=== PATIENT | female | born 1940 | race Caucasian/White ===

== ENCOUNTER 2018-02-21 00:46 | Emergency (ER) | payer MEDICARE ==
[~2018-02-21] VITALS: Ht 584.7 cm; Wt 56.4 kg
[2018-02-21 00:50] VITALS: BP 127/78
[2018-02-21] MEDS ORDERED: LIDOcaine 1.5% w/epinephrine 1:200,000 5ml ampul IJ ONE (01:15)
[2018-02-21] MEDS ORDERED: CEPH500C5 PO (01:48)
== END 2018-02-21 02:04 | disposition home or self-care (01) ==
LOC: ER 00:47
DX: S41.112A Laceration without foreign body of left upper arm, initial encounter (principal); S90.111A Contusion of right great toe without damage to nail, initial encounter; Z88.0 Allergy status to penicillin; Z79.2 Long term (current) use of antibiotics; W18.43XA Slipping, tripping and stumbling without falling due to stepping from one level to another, initial encounter; Y93.01 Activity, walking, marching and hiking; Y92.89 Other specified places as the place of occurrence of the external cause; Y99.8 Other external cause status
CPT/HCPCS: 12002; 99284; A4565; A6222; J3490; 99283

== ENCOUNTER 2019-05-15 13:41 | Inpatient (IN) | payer MEDICARE ==
[~2019-05-15] VITALS: Ht 170.2 cm; Wt 64.0 kg
[2019-05-15] MEDS ORDERED: normal saline 1000ML IV soln IVB ONE (14:10)
[2019-05-15] MEDS ORDERED: thiamine 100mg/ml 2ml inj. IV ONE ×2 (14:10→15:25)
[2019-05-15] MEDS ORDERED: levoFLOXACIN-Levaquin 750MG/D5 150 ML IV ONE (14:30)
[2019-05-15 14:41] LABS: BASOPHILS # (AUTO) 0.1 X10'3 (0-0.2); BASOPHILS % (AUTO) 0.6 % (0-1); EOSINOPHILS % (AUTO) 0.1 % (0-6); HEMATOCRIT 31.7 % (35.0-45.0); HEMOGLOBIN 11.3 g/dl (12.0-16.0); LYMPHOCYTES # (AUTO) 0.9 X10'3 (1.1-4.8); LYMPHOCYTES % (AUTO) 8.8 % (21-51); MEAN CORPUSCULAR HEMOGLOBIN 37.8 PG (27.0-31.0); MEAN CORPUSCULAR HGB CONC 35.6 g/dL (33.0-36.5); MEAN CORPUSCULAR VOLUME 106.2 FL (78-98); MEAN PLATELET VOLUME 8.1 FL (7.4-10.4); MONOCYTES # (AUTO) 1.3 X10'3 (0-0.9); MONOCYTES % (AUTO) 12.1 % (2-12); NEUTROPHILS # (AUTO) 8.2 X10'3 (1.8-7.7); NEUTROPHILS % (AUTO) 78.4 % (42-75); PLATELET COUNT 232 X10'3 (140-440); RED BLOOD COUNT 2.98 X10'6 (4.20-5.60); RED CELL DISTRIBUTION WIDTH 13.9 % (11.5-14.5); WHITE BLOOD COUNT 10.4 X10'3 (4.5-11.0)
[2019-05-15 15:00] LABS: ALANINE AMINOTRANSFERASE 20 U/L (12-78); ALBUMIN/GLOBULIN RATIO 0.9 (1.1-1.5); ALKALINE PHOSPHATASE 74 IU/L (46-116); ANION GAP 11 (8-16); ASPARTATE AMINO TRANSFERASE 29 U/L (10-37); BILIRUBIN,TOTAL 1.5 MG/DL (0.1-1.0); BLOOD UREA NITROGEN 16 MG/DL (7-18); CALCIUM 8.5 MG/DL (8.5-10.1); CHLORIDE 89 MMOL/L (99-107); GLUCOSE 131 MG/DL (70-104); LIPASE 200 U/L (73-393); POTASSIUM 3.8 MMOL/L (3.5-5.1); SODIUM 124 MMOL/L (135-145); TOTAL PROTEIN 6.4 G/DL (6.4-8.2); eGFR 70 ML/MIN
[2019-05-15] MEDS: normal saline 1000ml 1,000 ML IV SCH (15:23)
[2019-05-15] MEDS ORDERED: dextrose 50%-water 50ml dispensing syringe IV PRN (15:25)
[2019-05-15] MEDS ORDERED: LORazepam 2 mg/ml vial IV PRN (15:25)
[2019-05-15] MEDS ORDERED: metoprolol tartrate 1mg/ml inj IV ONE (15:25)
[2019-05-15] MEDS ORDERED: acetaminophen 325mg tablet PO PRN (15:25)
[2019-05-15] MEDS ORDERED: mag hydrox/Alum hydrox/simeth 30ml oral suspension PO PRN (15:25)
[2019-05-15] MEDS ORDERED: magnesium hydroxide 30ml (MOM) UD suspension PO PRN (15:25)
[2019-05-15] MEDS ORDERED: ondansetron/PF 4mg/2ml inj IV PRN (15:25)
[2019-05-15] MEDS ORDERED: thiamine 100mg tablet PO ONE (15:30)
--- NOTE | 2019-05-15 16:45 | NUR ---
recieved report from Ron Kirkpatrick RN. Pt arrived to floor @ 1630. A&Ox4
[2019-05-15 18:00] VITALS: BP 178/109
--- NOTE | 2019-05-15 18:27 | NUR ---
Problems reprioritized. Patient report given, questions answered & plan of care reviewed with ZARA Sosa.
--- NOTE | 2019-05-15 18:30 | NUR ---
Patient in room PCU 3012. I have received report from ZARA Meyers and had the opportunity to ask questions and assume patient care.
[2019-05-15 19:00] VITALS: BP 156/88
--- NOTE | 2019-05-15 19:55 | NUR ---
Unable to complete medicationr econciliation due to patient not having her med list with her. Will pass on to next shift to complete med rec when daughter comes to see patient.
[2019-05-15 22:00] VITALS: BP 148/104
[2019-05-16] VITALS (8 sets, daily range): BP systolic 104–171; BP diastolic 86–110
--- NOTE | 2019-05-16 01:52 | NUR ---
Patient has attempted to void twice so far and states she feels like she doesn't have to urinate. Bladder scan was performed and she has 900ml of urine in her bladder. Dr. Stewart was paged and an order for a pineda was given.
--- NOTE | 2019-05-16 02:00 | NUR ---
Rachel placed and pt had 900 ml of urine output
[2019-05-16] MEDS: hydrALAZINE 20mg/ml inj. IV PRN (02:59)
[2019-05-16] MEDS: normal saline 1000ml 1,000 ML IV SCH ×3 (02:59→21:23)
[2019-05-16 05:33] LABS: ALBUMIN 2.7 G/DL (3.4-5.0); ANION GAP 12 (8-16); BLOOD UREA NITROGEN 14 MG/DL (7-18); BUN/CREATININE RATIO 20.3 (6.6-38.0); CALCIUM 8.2 MG/DL (8.5-10.1); CHLORIDE 92 MMOL/L (99-107); CREATININE 0.69 MG/DL (0.40-0.90); GLUCOSE 121 MG/DL (70-104); POTASSIUM 3.9 MMOL/L (3.5-5.1); SODIUM 125 MMOL/L (135-145); TOTAL CARBON DIOXIDE 21.4 MMOL/L (24-32); eGFR 82 ML/MIN
[2019-05-16 05:37] LABS: BASOPHILS % (AUTO) 0.1 % (0-1); EOSINOPHILS % (AUTO) 0 % (0-6); HEMATOCRIT 30.9 % (35.0-45.0); HEMOGLOBIN 10.6 g/dl (12.0-16.0); LYMPHOCYTES # (AUTO) 0.8 X10'3 (1.1-4.8); LYMPHOCYTES % (AUTO) 7.2 % (21-51); MEAN CORPUSCULAR HEMOGLOBIN 37.6 PG (27.0-31.0); MEAN CORPUSCULAR HGB CONC 34.4 g/dL (33.0-36.5); MEAN CORPUSCULAR VOLUME 109.1 FL (78-98); MEAN PLATELET VOLUME 8.2 FL (7.4-10.4); MONOCYTES % (AUTO) 9.1 % (2-12); NEUTROPHILS % (AUTO) 83.6 % (42-75); PLATELET COUNT 234 X10'3 (140-440); RED BLOOD COUNT 2.83 X10'6 (4.20-5.60); RED CELL DISTRIBUTION WIDTH 14.1 % (11.5-14.5); WHITE BLOOD COUNT 10.8 X10'3 (4.5-11.0)
--- NOTE | 2019-05-16 06:20 | NUR ---
Problems reprioritized. Patient report given, questions answered & plan of care reviewed with ZARA Mckeon.
--- NOTE | 2019-05-16 06:26 | NUR ---
Patient in room PCU 3012B. I have received report from Sheila ZUÑIGA and had the opportunity to ask questions and assume patient care.
[2019-05-16] MEDS: thiamine 100mg tablet PO SCH (07:43)
[2019-05-16] MEDS: multivitamins, therapeutics tablet PO SCH (07:43)
[2019-05-16] MEDS: folic acid 1mg tablet PO SCH (07:43)
[2019-05-16] MEDS: levoFLOXACIN-Levaquin 500mg/D5 100 ML IV SCH (07:43)
[2019-05-16] MEDS ORDERED: folic acid inj. 2 MG, thiamine inj. 100 MG, MVI, adult No.4 with vit. K 10 ML in dextro... IV SCH ×4 (08:00)
--- NOTE | 2019-05-16 10:13 | NUR ---
Paged Dr England for pineda order PAGER ID: [phone] MESSAGE: Linda ramirez [phone]. Deanne Mna [id number]. Can I put in order for pineda? shift superintendent received order from Dr Stewart last night due to urinary retention, but did not put in order. Thank you!
[2019-05-16] MEDS ORDERED: APIX5TAB3 PO (11:39)
[2019-05-16] MEDS ORDERED: METO-395 PO (11:40)
[2019-05-16] MEDS ORDERED: TAMO20TA4 PO (11:41)
[2019-05-16] MEDS ORDERED: BUPR150T6 PO (11:42)
[2019-05-16] MEDS ORDERED: TOLT2TAB2 PO (11:44)
--- NOTE | 2019-05-16 13:59 | NUR ---
Malnutrition consult: Pt admit w/ L PNA hx alcoholism, HTN, and breast CA. AOx3 w/ moments of confusion today per EMR. Receiving PO thiamin/folic/MVI for etoh s/p banana bag. At this time pt has no significant edema, weakness, wt loss hx, and PO 50% avg first heart healthy meals decent given age. Currently does not meet minimum malnutrition criteria. Will continue to monitor. Addendum: 05/16/19 at [address] Amended: Links added.
--- NOTE | 2019-05-16 18:25 | NUR ---
Patient in room U 3012. I have received report from ZARA Mckeon and had the opportunity to ask questions and assume patient care. Pt sitting up m bed states not hungry rain gimenez ice fernando for later. orderd from dietary. Addendum: 05/16/19 at 1857 by Aftab Desai RN Amended: Links added.
--- NOTE | 2019-05-16 18:27 | NUR ---
Problems reprioritized. Patient report given, questions answered & plan of care reviewed with Sunshine ZUÑIGA. Patient laying in bed, stable and with no complaints
[2019-05-16] MEDS: lactobacillus rhamnosus 10,000 MMU CELLS/CAPSULE PO SCH (19:42)
[2019-05-17] VITALS (8 sets, daily range): BP systolic 126–176; BP diastolic 67–99
[2019-05-17] MEDS: hydrALAZINE 20mg/ml inj. IV PRN ×2 (02:28→16:45)
[2019-05-17] MEDS: normal saline 1000ml 1,000 ML IV SCH ×2 (02:28→22:04)
[2019-05-17 05:26] LABS: BASOPHILS % (AUTO) 0.2 % (0-1); EOSINOPHILS % (AUTO) 0.1 % (0-6); HEMATOCRIT 31.7 % (35.0-45.0); LYMPHOCYTES # (AUTO) 0.9 X10'3 (1.1-4.8); LYMPHOCYTES % (AUTO) 8.1 % (21-51); MEAN CORPUSCULAR HEMOGLOBIN 37.8 PG (27.0-31.0); MEAN CORPUSCULAR HGB CONC 34.7 g/dL (33.0-36.5); MEAN PLATELET VOLUME 8.1 FL (7.4-10.4); MONOCYTES # (AUTO) 1.2 X10'3 (0-0.9); MONOCYTES % (AUTO) 10.6 % (2-12); NEUTROPHILS # (AUTO) 8.9 X10'3 (1.8-7.7); PLATELET COUNT 231 X10'3 (140-440); RED CELL DISTRIBUTION WIDTH 14.5 % (11.5-14.5)
[2019-05-17 05:45] LABS: ALBUMIN 2.7 G/DL (3.4-5.0); ANION GAP 11 (8-16); BLOOD UREA NITROGEN 12 MG/DL (7-18); BUN/CREATININE RATIO 18.2 (6.6-38.0); CALCIUM 7.9 MG/DL (8.5-10.1); CHLORIDE 94 MMOL/L (99-107); CREATININE 0.66 MG/DL (0.40-0.90); GLUCOSE 102 MG/DL (70-104); POTASSIUM 3.3 MMOL/L (3.5-5.1); SODIUM 126 MMOL/L (135-145); TOTAL CARBON DIOXIDE 20.9 MMOL/L (24-32); eGFR 87 ML/MIN
--- NOTE | 2019-05-17 06:32 | NUR ---
Problems reprioritized. Patient report given, questions answered & plan of care reviewed with ZARA WRAY. Addendum: 05/17/19 at 0633 by Aftab Desai RN Amended: Links added.
[2019-05-17] MEDS: thiamine 100mg tablet PO SCH (07:51)
[2019-05-17] MEDS: lactobacillus rhamnosus 10,000 MMU CELLS/CAPSULE PO SCH ×2 (07:51→22:07)
[2019-05-17] MEDS: levoFLOXACIN-Levaquin 500mg/D5 100 ML IV SCH (07:51)
[2019-05-17] MEDS: multivitamins, therapeutics tablet PO SCH (07:51)
[2019-05-17] MEDS: folic acid 1mg tablet PO SCH (07:51)
[2019-05-17] MEDS ORDERED: potassium Cl 20 mEq SR tablet PO PRN (09:50)
[2019-05-17] MEDS ORDERED: magnesium Cl slow-release 64mg tablet PO PRN (09:50)
[2019-05-17] MEDS ORDERED: potassium CL 10mEq/100ml bag 100 ML IV PRN (09:50)
[2019-05-17] MEDS ORDERED: magnesium 4gm in 100ml NS 100 ML IV PRN (09:50)
[2019-05-17] MEDS: K and/or MAG REPLACEMENT MC SCH ×2 (09:50→20:00)
[2019-05-17] MEDS ORDERED: iohexol 300mg/ml 100ml inj. ONE (10:20)
[2019-05-17] MEDS: potassium Cl 20 mEq SR tablet PO PRN ×2 (11:27→16:45)
[2019-05-17 15:03] LABS: CLARITY,URINE TURBID (Clear); COLOR,URINE STRAW (Yellow); GLUCOSE, URINE NEGATIVE (Neg); KETONES,URINE 15 mg/dl (Neg); LEUKOCYTE ESTERASE ,URINE NEGATIVE (Neg); NITRITES, URINE NEGATIVE (Neg); OCCULT BLOOD,URINE LARGE (Neg); PH,URINE 6.5 (4.8-8.0); PROTEIN,URINE 100 mg/dl (Neg)
[2019-05-17 15:07] LABS: UA COLLECTION TYPE FOLEY CATH
[2019-05-17 15:12] LABS: BACTERIA,URINE NONE SEEN /HPF (Neg); MUCUS STRANDS NONE SEEN /LPF (Neg); RBC,URINE TNTC /HPF (0-2); SQUAMOUS EPITHELIAL CELL,UR FEW /LPF (FEW); WBC,URINE 0-4 /HPF (0-4)
[2019-05-17] MEDS ORDERED: LORazepam 2 mg/ml vial IV PRN (15:25)
[2019-05-17] MEDS ORDERED: LORazepam 1 MG tablet PO PRN (15:25)
--- NOTE | 2019-05-17 17:32 | NUR ---
patient and patients daughter were requesting tylenol for back pain and a medication to help patient sleep. PAGER ID: [phone] MESSAGE: Linda WILLIAMSON. Pt and Pt family requesting Tylenol for back pain and medication to help patient sleep if possible. Thank you! Received order for 650 mg tylenol q PRN and melatonin 6 mg for sleep
[2019-05-17] MEDS ORDERED: acetaminophen 325mg tablet PO PRN (17:35)
--- NOTE | 2019-05-17 18:30 | NUR ---
Patient in room PCU 3012. I have received report from Linda ZUÑIGA and had the opportunity to ask questions and assume patient care.
--- NOTE | 2019-05-17 18:40 | NUR ---
Problems reprioritized. Patient report given, questions answered & plan of care reviewed with Amanda ZUÑIGA. Pt is resting in bed
[2019-05-17] MEDS ORDERED: Melatonin 3mg tablet PO SCH (21:00)
[2019-05-18 02:00] VITALS: BP 131/76
[2019-05-18] MEDS: normal saline 1000ml 1,000 ML IV SCH ×2 (03:23→10:04)
[2019-05-18 04:48] LABS: BASOPHILS % (AUTO) 0.4 % (0-1); EOSINOPHILS % (AUTO) 0.5 % (0-6); HEMATOCRIT 33.5 % (35.0-45.0); HEMOGLOBIN 11.5 g/dl (12.0-16.0); LYMPHOCYTES % (AUTO) 10.5 % (21-51); MEAN CORPUSCULAR HEMOGLOBIN 37.8 PG (27.0-31.0); MEAN CORPUSCULAR HGB CONC 34.3 g/dL (33.0-36.5); MEAN PLATELET VOLUME 7.9 FL (7.4-10.4); MONOCYTES # (AUTO) 1.1 X10'3 (0-0.9); MONOCYTES % (AUTO) 11.6 % (2-12); NEUTROPHILS # (AUTO) 7.1 X10'3 (1.8-7.7); PLATELET COUNT 228 X10'3 (140-440); RED BLOOD COUNT 3.04 X10'6 (4.20-5.60); RED CELL DISTRIBUTION WIDTH 14.7 % (11.5-14.5); WHITE BLOOD COUNT 9.2 X10'3 (4.5-11.0)
[2019-05-18 04:49] LABS: ALBUMIN 2.6 G/DL (3.4-5.0); ANION GAP 9 (8-16); BLOOD UREA NITROGEN 8 MG/DL (7-18); BUN/CREATININE RATIO 12.3 (6.6-38.0); CALCIUM 8.3 MG/DL (8.5-10.1); CHLORIDE 96 MMOL/L (99-107); CREATININE 0.65 MG/DL (0.40-0.90); GLUCOSE 96 MG/DL (70-104); POTASSIUM 3.4 MMOL/L (3.5-5.1); SODIUM 128 MMOL/L (135-145); TOTAL CARBON DIOXIDE 22.9 MMOL/L (24-32); eGFR 88 ML/MIN
--- NOTE | 2019-05-18 06:15 | NUR ---
Problems reprioritized. Patient report given, questions answered & plan of care reviewed with Linda ZUÑIGA.
[2019-05-18 06:30] VITALS: BP 175/101
--- NOTE | 2019-05-18 06:54 | NUR ---
Patient in room PCU 3012B. I have received report from Antonella ZUÑIGA and had the opportunity to ask questions and assume patient care.
[2019-05-18] MEDS: potassium Cl 20 mEq SR tablet PO PRN ×2 (07:28→12:56)
[2019-05-18] MEDS: hydrALAZINE 20mg/ml inj. IV PRN (07:29)
[2019-05-18] MEDS: folic acid 1mg tablet PO SCH (07:31)
[2019-05-18] MEDS: lactobacillus rhamnosus 10,000 MMU CELLS/CAPSULE PO SCH (07:31)
[2019-05-18] MEDS: thiamine 100mg tablet PO SCH (07:31)
[2019-05-18] MEDS: multivitamins, therapeutics tablet PO SCH (07:31)
[2019-05-18] MEDS: K and/or MAG REPLACEMENT MC SCH (07:32)
[2019-05-18] MEDS ORDERED: buproprion 150mg XL (24-hour) tablet PO SCH (08:30)
[2019-05-18] MEDS ORDERED: metoprolol succinate 25mg (24-HOUR) SR. Tablet PO SCH (08:30)
[2019-05-18] MEDS ORDERED: TAMOXIFEN CITRATE PO SCH (08:40)
[2019-05-18 11:00] VITALS: BP 145/77
[2019-05-18] MEDS ORDERED: levoFLOXACIN 500mg tablet PO SCH (11:00)
[2019-05-18 15:00] VITALS: BP 138/82
--- NOTE | 2019-05-18 15:50 | NUR ---
Per MD, patient stable for transfer to [facility]. Family aware of transfer. Report called to Sharifa ZUÑIGA at 1455. All questions answered. Daughter Dayna took some of patients belongings with her to meet patient at [facility]. IV removed with catheter intact. Tele monitor removed and returned to telecommunication equipment repairer. Patient escorted from hospital in wheelchair accompanied by [facility] staff and driven to [facility] via [facility]
[2019-05-18] MEDS ORDERED: apixaban 5mg tablet PO SCH (20:00)
[2019-05-19] MEDS ORDERED: LORazepam 1 MG tablet PO PRN (15:25)
[2019-05-19] MEDS ORDERED: LORazepam 2 mg/ml vial IV PRN (15:25)
== END 2019-05-18 15:50 | DRG 193 ==
LOC: ER 13:42 → ED HOLD 15:35 → PCU 3S 16:46
PROVIDERS: ADMIT Family Medicine; ATTEND Family Medicine
PROC: BW281ZZ Computerized Tomography (CT Scan) of Head using Low Osmolar Contrast (ICD-10-PCS; principal; 2019-05-17)
DX: J18.9 Pneumonia, unspecified organism (principal); G93.41 Metabolic encephalopathy; E87.1 Hypo-osmolality and hyponatremia; E44.0 Moderate protein-calorie malnutrition; D63.8 Anemia in other chronic diseases classified elsewhere; E86.0 Dehydration; E87.6 Hypokalemia; F10.20 Alcohol dependence, uncomplicated; F32.9 Major depressive disorder, single episode, unspecified; I10 Essential (primary) hypertension; I48.91 Unspecified atrial fibrillation; N13.9 Obstructive and reflux uropathy, unspecified; Z85.3 Personal history of malignant neoplasm of breast; Z68.22 Body mass index [BMI] 22.0-22.9, adult; Z88.0 Allergy status to penicillin
CPT/HCPCS: 36415; 70470; 71045; 80048; 80053; 81001; 83605; 83690; 84145; 84484; 85025; 87040; 87081; 93005; 96361; 96374; 97116; 97161; 97530; 99285; G0378; J0360; J1956; J3411; J3490; J7030; Q9967

== ENCOUNTER 2019-08-06 20:33 | Emergency (ER) | payer MEDICARE ==
[~2019-08-06] VITALS: Ht 170.2 cm; Wt 54.5 kg
[~2019-08-06 20:33] MED LIST: APIX5TAB3 PO; BUPR150T6 PO; METO-395 PO; TAMO20TA4 PO; TOLT2TAB2 PO
[2019-08-06] MEDS ORDERED: FAMO-128 PO (21:40)
[2019-08-06] MEDS ORDERED: DONE10TA7 PO (21:40)
[2019-08-06 22:15] LABS: BASOPHILS % (AUTO) 0.4 % (0-1); EOSINOPHILS % (AUTO) 0.1 % (0-6); HEMATOCRIT 35.5 % (35.0-45.0); HEMOGLOBIN 12.2 g/dl (12.0-16.0); LYMPHOCYTES # (AUTO) 0.8 X10'3 (1.1-4.8); LYMPHOCYTES % (AUTO) 9.6 % (21-51); MEAN CORPUSCULAR HGB CONC 34.4 g/dL (33.0-36.5); MEAN CORPUSCULAR VOLUME 104.4 FL (78-98); MEAN PLATELET VOLUME 9.9 FL (7.4-10.4); MONOCYTES # (AUTO) 0.9 X10'3 (0-0.9); MONOCYTES % (AUTO) 10.8 % (2-12); NEUTROPHILS # (AUTO) 6.2 X10'3 (1.8-7.7); NEUTROPHILS % (AUTO) 79.1 % (42-75); PLATELET COUNT 204 X10'3 (140-440); RED CELL DISTRIBUTION WIDTH 13.7 % (11.5-14.5); WHITE BLOOD COUNT 7.9 X10'3 (4.5-11.0)
[2019-08-06] MEDS ORDERED: tranexamic acid 100mg/ml inj. TP ONE (22:25)
--- NOTE | 2019-08-06 23:10 | NUR ---
HONEY BRUNSON MADE AWARE OF PT BLEEDING. NO NEW ORDERS OTHER THEN TO "HAVE PATIENT WAIT 30 MINUTES."
[2019-08-07] VITALS: BP 141/87
== END 2019-08-07 00:03 | disposition home or self-care (01) ==
LOC: ER 20:34
DX: R04.0 Epistaxis (principal); I48.91 Unspecified atrial fibrillation; Z85.3 Personal history of malignant neoplasm of breast; Z88.0 Allergy status to penicillin; Z79.899 Other long term (current) drug therapy; Z79.01 Long term (current) use of anticoagulants
CPT/HCPCS: 30901; 36415; 85025; 99284

== ENCOUNTER 2019-08-10 14:08 | Emergency (ER) | payer MEDICARE ==
[~2019-08-10] VITALS: Ht 167.6 cm; Wt 53.7 kg
[~2019-08-10 14:08] MED LIST changes: +DONE10TA7 PO; +FAMO-128 PO
[2019-08-10 14:15] VITALS: BP 179/103
--- NOTE | 2019-08-10 14:42 | NUR ---
RHINO ROCKET REMOVED, PT CATA WELL
--- NOTE | 2019-08-10 15:08 | NUR ---
PT LEFT WITHOUT DC INSTRUCTIONS
== END 2019-08-10 15:08 | disposition home or self-care (01) ==
LOC: ER 14:09
DX: R04.0 Epistaxis (principal); F32.9 Major depressive disorder, single episode, unspecified; F19.10 Other psychoactive substance abuse, uncomplicated; Z85.3 Personal history of malignant neoplasm of breast; Z88.0 Allergy status to penicillin; Z79.899 Other long term (current) drug therapy
CPT/HCPCS: 99281

== ENCOUNTER 2019-08-25 22:59 | Inpatient (IN) | payer MEDICARE ==
[~2019-08-25] VITALS: Ht 167.6 cm; Wt 66.4 kg
[2019-08-25] MEDS ORDERED: ondansetron/PF 4mg/2ml inj IV ONE (23:10)
[2019-08-25] MEDS ORDERED: normal saline 1000ML IV soln IVB ONE (23:10)
[2019-08-25 23:38] LABS: BASOPHILS # (AUTO) 0.1 X10'3 (0-0.2); BASOPHILS % (AUTO) 0.4 % (0-1); EOSINOPHILS % (AUTO) 0.1 % (0-6); HEMATOCRIT 42.9 % (35.0-45.0); HEMOGLOBIN 14.7 g/dl (12.0-16.0); LYMPHOCYTES # (AUTO) 0.4 X10'3 (1.1-4.8); LYMPHOCYTES % (AUTO) 2.6 % (21-51); MEAN CORPUSCULAR HEMOGLOBIN 35.4 PG (27.0-31.0); MEAN CORPUSCULAR HGB CONC 34.1 g/dL (33.0-36.5); MEAN CORPUSCULAR VOLUME 103.8 FL (78-98); MEAN PLATELET VOLUME 9.8 FL (7.4-10.4); MONOCYTES # (AUTO) 0.8 X10'3 (0-0.9); MONOCYTES % (AUTO) 4.7 % (2-12); NEUTROPHILS # (AUTO) 15.7 X10'3 (1.8-7.7); NEUTROPHILS % (AUTO) 92.2 % (42-75); PLATELET COUNT 186 X10'3 (140-440); RED BLOOD COUNT 4.14 X10'6 (4.20-5.60); RED CELL DISTRIBUTION WIDTH 14.2 % (11.5-14.5); WHITE BLOOD COUNT 17.1 X10'3 (4.5-11.0)
[2019-08-25] MEDS ORDERED: furosemide 10 MG/1 ML 10ml inj IV ONE (23:40)
[2019-08-25 23:48] LABS: ALANINE AMINOTRANSFERASE 32 U/L (12-78); ALBUMIN 3.7 G/DL (3.4-5.0); ALKALINE PHOSPHATASE 89 IU/L (46-116); ANION GAP 10 (8-16); ASPARTATE AMINO TRANSFERASE 32 U/L (10-37); BILIRUBIN,TOTAL 1.1 MG/DL (0.1-1.0); BLOOD UREA NITROGEN 13 MG/DL (7-18); BUN/CREATININE RATIO 13.3 (6.6-38.0); CALCIUM 9.3 MG/DL (8.5-10.1); CHLORIDE 95 MMOL/L (99-107); CREATININE 0.98 MG/DL (0.40-0.90); GLUCOSE 161 MG/DL (70-104); POTASSIUM 4.1 MMOL/L (3.5-5.1); SODIUM 131 MMOL/L (135-145); TOTAL PROTEIN 7.5 G/DL (6.4-8.2); eGFR 55 ML/MIN
[2019-08-25 23:56] LABS: TROPONIN I < 0.04 NG/ML (0.0-0.05)
[2019-08-25 23:57] LABS: ETHANOL < 0.010 GM/DL (0.0-0.010)
[2019-08-26] MEDS ORDERED: DONE10TA7 PO (00:09)
[2019-08-26] MEDS ORDERED: METO-539 PO (00:09)
[2019-08-26] MEDS ORDERED: LORA10CA PO (00:09)
[2019-08-26] MEDS ORDERED: CHOL200074 PO (00:09)
[2019-08-26] MEDS ORDERED: MIRT15TA PO (00:09)
[2019-08-26] MEDS ORDERED: CETI-90 PO (00:09)
[2019-08-26] MEDS ORDERED: MULT-933 PO (00:09)
[2019-08-26] MEDS ORDERED: folic acid 1mg/0.2ml inj IV ONE (00:10)
[2019-08-26] MEDS ORDERED: thiamine 100mg/ml 2ml inj. IV ONE (00:10)
--- NOTE | 2019-08-26 00:32 | NUR ---
pt was up to commode but she didn't void. Got her back to bed and all tucked in and she said she had to go. Wick catheter placed.
[2019-08-26 01:25] LABS: CLARITY,URINE CLEAR (Clear); COLOR,URINE YELLOW (Yellow); GLUCOSE, URINE NEGATIVE (Neg); KETONES,URINE NEGATIVE (Neg); LEUKOCYTE ESTERASE ,URINE TRACE (Neg); NITRITES, URINE NEGATIVE (Neg); OCCULT BLOOD,URINE LARGE (Neg); PROTEIN,URINE NEGATIVE (Neg); UROBILINOGEN,URINE 0.2 E.U/dL (0.2-1.0)
[2019-08-26 01:26] LABS: UA COLLECTION TYPE CLN CATCH MIDSTREAM
[2019-08-26 01:27] LABS: WBC,URINE 0-4 /HPF (0-4)
[2019-08-26 01:28] LABS: BACTERIA,URINE NONE SEEN /HPF (Neg); SQUAMOUS EPITHELIAL CELL,UR FEW /LPF (FEW)
[2019-08-26] MEDS ORDERED: magnesium 2GM in 50ml NS 50 ML IV PRN (01:30)
[2019-08-26] MEDS ORDERED: magnesium Cl slow-release 64mg tablet PO PRN (01:30)
[2019-08-26] MEDS ORDERED: potassium Cl 20 mEq SR tablet PO PRN ×2 (01:30)
[2019-08-26] MEDS ORDERED: acetaminophen 325mg tablet PO PRN (01:30)
[2019-08-26] MEDS ORDERED: ondansetron/PF 4mg/2ml inj IV PRN (01:30)
[2019-08-26] MEDS ORDERED: potassium CL 10mEq/100ml bag 100 ML IV PRN ×2 (01:30)
[2019-08-26] MEDS ORDERED: magnesium 4gm in 100ml NS 100 ML IV PRN (01:30)
[2019-08-26] MEDS ORDERED: magnesium hydroxide 30ml (MOM) UD suspension PO PRN (01:30)
[2019-08-26] MEDS ORDERED: mag hydrox/Alum hydrox/simeth 30ml oral suspension PO PRN (01:30)
--- NOTE | 2019-08-26 02:00 | NUR ---
Patient in room ED 12. I have received report from ZARA Scott and had the opportunity to ask questions and will assume patient care when pt arrives to unit.
--- NOTE | 2019-08-26 02:30 | NUR ---
Unable to draw blood for patients 2 HR lactic acid due, lab has been notified and will draw lab when they are on surgical unit this morning.
[2019-08-26 02:46] VITALS: BP 139/81
--- NOTE | 2019-08-26 05:20 | NUR ---
Lab informed again while on the floor that pt needs her lactic acid drawn.
--- NOTE | 2019-08-26 06:44 | NUR ---
Problems reprioritized. Patient report given, questions answered & plan of care reviewed with ZARA Hair.
--- NOTE | 2019-08-26 07:06 | NUR ---
Patient in room [facility] 356. I have received report from ZARA Chris and had the opportunity to ask questions and assume patient care.
[2019-08-26 08:00] VITALS: BP 168/94
[2019-08-26] MEDS: K and/or MAG REPLACEMENT MC SCH ×2 (08:00→20:00)
[2019-08-26] MEDS ORDERED: cefuroxime axetil 250mg tablet PO SCH (08:00)
[2019-08-26] MEDS: furosemide 20 MG/2 ML vial IV SCH ×2 (08:12→19:47)
[2019-08-26] MEDS: apixaban 5mg tablet PO SCH ×2 (08:15→19:44)
[2019-08-26] MEDS: carVEDilol 12.5mg tablet PO SCH ×2 (08:16→19:44)
[2019-08-26] MEDS: famotidine 20mg tablet PO SCH ×2 (08:16→19:44)
[2019-08-26] MEDS: lisinopril 2.5mg tablet PO SCH (08:16)
--- NOTE | 2019-08-26 11:01 | NUR ---
Malnutrition consult re: "losing wt d/t loss of appetite and difficulty swallowing". Pt currently documented as A/O x 2 and confused. Pt with some dementia per H&P. Per documented wt hx, pt weighed 56.4 kg 02/21/18 and 53.7 kg 08/10/19, both weights taken with a chair scale. Current documented wt is 66.36 kg which is pt stated. No apparent wt loss per reported wt vs scaled wt hx. Unable to assess PO intake at this time as pt currently NPO. Pt would benefit from BSS with ST prior to diet advancement to determine appropriate texture modification. Pt with no significant decrease in muscle strength or edema. Pt currently does not meet criteria for malnutrition. Will continue to follow. Addendum: 08/26/19 at [address] Amended: Links added.
[2019-08-26 12:00] VITALS: BP 110/65
[2019-08-26] MEDS: cefepime 1GM in D5W 50mL 50 ML IV SCH ×3 (13:14→23:07)
--- NOTE | 2019-08-26 18:30 | NUR ---
Problems reprioritized. Patient report given, questions answered & plan of care reviewed with Jose Malik.
--- NOTE | 2019-08-26 18:40 | NUR ---
Patient in room [facility]ELIN 356. I have received report from Dyana ZUÑIGA and had the opportunity to ask questions and assume patient care.
[2019-08-26 19:41] VITALS: BP 110/59
[2019-08-26] MEDS: lactobacillus rhamnosus 10,000 MMU CELLS/CAPSULE PO SCH (19:44)
[2019-08-26] MEDS: donepezil 5mg tablet PO SCH (20:48)
[2019-08-26] MEDS: mirtazapine 15mg tablet PO SCH (20:48)
[2019-08-27] VITALS: BP 127/84
--- NOTE | 2019-08-27 06:44 | NUR ---
Problems reprioritized. Patient report given, questions answered & plan of care reviewed with Abbey ZUÑIGA.
[2019-08-27 06:49] LABS: BASOPHILS # (AUTO) 0.1 X10'3 (0-0.2); BASOPHILS % (AUTO) 0.9 % (0-1); EOSINOPHILS # (AUTO) 0.1 X10'3 (0-0.9); EOSINOPHILS % (AUTO) 0.9 % (0-6); HEMOGLOBIN 13.4 g/dl (12.0-16.0); LYMPHOCYTES # (AUTO) 0.8 X10'3 (1.1-4.8); LYMPHOCYTES % (AUTO) 9.8 % (21-51); MEAN CORPUSCULAR HEMOGLOBIN 35.4 PG (27.0-31.0); MEAN CORPUSCULAR HGB CONC 34.3 g/dL (33.0-36.5); MEAN CORPUSCULAR VOLUME 103.2 FL (78-98); MONOCYTES # (AUTO) 0.9 X10'3 (0-0.9); MONOCYTES % (AUTO) 10.5 % (2-12); NEUTROPHILS # (AUTO) 6.5 X10'3 (1.8-7.7); NEUTROPHILS % (AUTO) 77.9 % (42-75); PLATELET COUNT 154 X10'3 (140-440); RED BLOOD COUNT 3.78 X10'6 (4.20-5.60); WHITE BLOOD COUNT 8.4 X10'3 (4.5-11.0)
--- NOTE | 2019-08-27 06:56 | NUR ---
Patient in room [facility]ELIN 356. I have received report from Jeanne ZUÑIGA and had the opportunity to ask questions and assume patient care.
[2019-08-27 06:59] LABS: ALANINE AMINOTRANSFERASE 21 U/L (12-78); ALBUMIN 2.9 G/DL (3.4-5.0); ALBUMIN/GLOBULIN RATIO 0.9 (1.1-1.5); ALKALINE PHOSPHATASE 60 IU/L (46-116); ANION GAP 8 (8-16); ASPARTATE AMINO TRANSFERASE 22 U/L (10-37); BILIRUBIN,TOTAL 1.3 MG/DL (0.1-1.0); BLOOD UREA NITROGEN 12 MG/DL (7-18); BUN/CREATININE RATIO 11.7 (6.6-38.0); CALCIUM 8.8 MG/DL (8.5-10.1); CHLORIDE 99 MMOL/L (99-107); CREATININE 1.03 MG/DL (0.40-0.90); GLUCOSE 90 MG/DL (70-104); MAGNESIUM 1.3 MG/DL (1.5-2.4); SODIUM 139 MMOL/L (135-145); TOTAL CARBON DIOXIDE 32.3 MMOL/L (24-32); TOTAL PROTEIN 6.1 G/DL (6.4-8.2); eGFR 52 ML/MIN
[2019-08-27 07:00] VITALS: BP 159/90
[2019-08-27] MEDS: K and/or MAG REPLACEMENT MC SCH ×2 (08:00→20:00)
[2019-08-27] MEDS: cefepime 1GM in D5W 50mL 50 ML IV SCH ×3 (08:51→23:52)
[2019-08-27] MEDS: furosemide 20 MG/2 ML vial IV SCH ×2 (08:55→20:00)
[2019-08-27] MEDS: famotidine 20mg tablet PO SCH ×2 (09:00→20:44)
[2019-08-27] MEDS: carVEDilol 12.5mg tablet PO SCH ×2 (09:00→20:00)
[2019-08-27] MEDS ORDERED: POTASSIUM BICARB 20meq eff tab 20 MEQ TABLET.EFF PO PRN ×2 (09:00)
[2019-08-27] MEDS: lactobacillus rhamnosus 10,000 MMU CELLS/CAPSULE PO SCH ×2 (09:01→20:44)
[2019-08-27] MEDS: lisinopril 2.5mg tablet PO SCH (09:01)
[2019-08-27] MEDS: apixaban 5mg tablet PO SCH ×2 (09:01→20:44)
[2019-08-27 11:00] VITALS: BP 128/61
[2019-08-27] MEDS ORDERED: potassium Cl 20 mEq SR tablet PO PRN (13:20)
[2019-08-27] MEDS: potassium Cl 20 mEq SR tablet PO PRN ×2 (13:43→18:59)
--- NOTE | 2019-08-27 18:00 | NUR ---
Patient in room EVELIN 356A. I have received report from Abbey ZUÑIGA and had the opportunity to ask questions and assume patient care.
--- NOTE | 2019-08-27 18:02 | NUR ---
Problems reprioritized. Patient report given, questions answered & plan of care reviewed with Jeanne ZUÑIGA.
[2019-08-27 18:55] VITALS: BP 94/54
[2019-08-27] MEDS: mirtazapine 15mg tablet PO SCH (20:44)
[2019-08-27] MEDS: donepezil 5mg tablet PO SCH (20:44)
[2019-08-28] VITALS: BP 145/71
[2019-08-28 05:24] LABS: BASOPHILS # (AUTO) 0.1 X10'3 (0-0.2); BASOPHILS % (AUTO) 0.6 % (0-1); EOSINOPHILS # (AUTO) 0.1 X10'3 (0-0.9); EOSINOPHILS % (AUTO) 0.6 % (0-6); HEMATOCRIT 36.4 % (35.0-45.0); HEMOGLOBIN 12.4 g/dl (12.0-16.0); LYMPHOCYTES # (AUTO) 0.8 X10'3 (1.1-4.8); LYMPHOCYTES % (AUTO) 9.5 % (21-51); MEAN CORPUSCULAR HEMOGLOBIN 35.1 PG (27.0-31.0); MEAN CORPUSCULAR HGB CONC 34.2 g/dL (33.0-36.5); MEAN CORPUSCULAR VOLUME 102.6 FL (78-98); NEUTROPHILS # (AUTO) 6.8 X10'3 (1.8-7.7); NEUTROPHILS % (AUTO) 78.3 % (42-75); PLATELET COUNT 161 X10'3 (140-440); RED BLOOD COUNT 3.54 X10'6 (4.20-5.60); RED CELL DISTRIBUTION WIDTH 14.1 % (11.5-14.5); WHITE BLOOD COUNT 8.7 X10'3 (4.5-11.0)
[2019-08-28 05:55] LABS: ALANINE AMINOTRANSFERASE 17 U/L (12-78); ALBUMIN 2.4 G/DL (3.4-5.0); ALBUMIN/GLOBULIN RATIO 0.8 (1.1-1.5); ALKALINE PHOSPHATASE 53 IU/L (46-116); ANION GAP 4 (8-16); ASPARTATE AMINO TRANSFERASE 17 U/L (10-37); BLOOD UREA NITROGEN 14 MG/DL (7-18); BUN/CREATININE RATIO 13.3 (6.6-38.0); CALCIUM 8.2 MG/DL (8.5-10.1); CHLORIDE 102 MMOL/L (99-107); CREATININE 1.05 MG/DL (0.40-0.90); GLUCOSE 90 MG/DL (70-104); MAGNESIUM 2.4 MG/DL (1.5-2.4); POTASSIUM 4.7 MMOL/L (3.5-5.1); SODIUM 139 MMOL/L (135-145); TOTAL CARBON DIOXIDE 32.7 MMOL/L (24-32); TOTAL PROTEIN 5.3 G/DL (6.4-8.2); eGFR 51 ML/MIN
--- NOTE | 2019-08-28 06:34 | NUR ---
Problems reprioritized. Patient report given, questions answered & plan of care reviewed with Abbey ZUÑIGA.
[2019-08-28 07:00] VITALS: BP 149/84
--- NOTE | 2019-08-28 07:09 | NUR ---
Problems reprioritized. Patient report given, questions answered & plan of care reviewed with Jeanne ZUÑIGA. Addendum: 08/28/19 at 0710 by Abbey Oconnell RN Patient in room [facility]ELIN 356. I have received report from Jeanne ZUÑIGA and had the opportunity to ask questions and assume patient care.
[2019-08-28] MEDS: furosemide 20 MG/2 ML vial IV SCH ×2 (07:47→20:31)
[2019-08-28] MEDS: lactobacillus rhamnosus 10,000 MMU CELLS/CAPSULE PO SCH ×2 (07:47→20:32)
[2019-08-28] MEDS: carVEDilol 12.5mg tablet PO SCH ×2 (07:47→20:32)
[2019-08-28] MEDS: apixaban 5mg tablet PO SCH ×2 (07:47→20:32)
[2019-08-28] MEDS: famotidine 20mg tablet PO SCH ×2 (07:47→20:32)
[2019-08-28] MEDS: lisinopril 2.5mg tablet PO SCH (07:48)
[2019-08-28] MEDS: cefepime 1GM in D5W 50mL 50 ML IV SCH ×3 (07:48→23:47)
[2019-08-28] MEDS: K and/or MAG REPLACEMENT MC SCH ×2 (08:00→20:00)
[2019-08-28 11:00] VITALS: BP 93/50
--- NOTE | 2019-08-28 17:48 | NUR ---
Per patients daughter Dayna if patient is not accepted at [facility] the 2nd choice would be [facility]. Left message on [facility] voicemail regarding this. Daughter Dayna would also like to get patients medical records referred her to Medical records phone number .
[2019-08-28 18:00] VITALS: BP 112/54
--- NOTE | 2019-08-28 18:05 | NUR ---
Patient in room [facility]ELIN 356. I have received report from Abbey ZUÑIGA and had the opportunity to ask questions and assume patient care.
[2019-08-28] MEDS: mirtazapine 15mg tablet PO SCH (20:32)
[2019-08-28] MEDS: donepezil 5mg tablet PO SCH (20:32)
[2019-08-29 00:28] VITALS: BP 103/53
[2019-08-29 05:23] LABS: BASOPHILS # (AUTO) 0.1 X10'3 (0-0.2); EOSINOPHILS # (AUTO) 0.1 X10'3 (0-0.9); EOSINOPHILS % (AUTO) 0.7 % (0-6); HEMATOCRIT 35.2 % (35.0-45.0); HEMOGLOBIN 11.9 g/dl (12.0-16.0); LYMPHOCYTES # (AUTO) 0.9 X10'3 (1.1-4.8); LYMPHOCYTES % (AUTO) 12.2 % (21-51); MEAN CORPUSCULAR HEMOGLOBIN 35.3 PG (27.0-31.0); MEAN CORPUSCULAR HGB CONC 33.7 g/dL (33.0-36.5); MEAN CORPUSCULAR VOLUME 104.6 FL (78-98); MEAN PLATELET VOLUME 9.7 FL (7.4-10.4); MONOCYTES # (AUTO) 0.9 X10'3 (0-0.9); MONOCYTES % (AUTO) 12.1 % (2-12); NEUTROPHILS # (AUTO) 5.7 X10'3 (1.8-7.7); PLATELET COUNT 160 X10'3 (140-440); RED BLOOD COUNT 3.36 X10'6 (4.20-5.60); RED CELL DISTRIBUTION WIDTH 13.9 % (11.5-14.5); WHITE BLOOD COUNT 7.6 X10'3 (4.5-11.0)
[2019-08-29 05:44] LABS: ALANINE AMINOTRANSFERASE 14 U/L (12-78); ALBUMIN 2.2 G/DL (3.4-5.0); ALBUMIN/GLOBULIN RATIO 0.7 (1.1-1.5); ALKALINE PHOSPHATASE 47 IU/L (46-116); ANION GAP 5 (8-16); ASPARTATE AMINO TRANSFERASE 16 U/L (10-37); BILIRUBIN,TOTAL 0.9 MG/DL (0.1-1.0); BLOOD UREA NITROGEN 15 MG/DL (7-18); BUN/CREATININE RATIO 13.8 (6.6-38.0); CALCIUM 7.9 MG/DL (8.5-10.1); CHLORIDE 103 MMOL/L (99-107); CREATININE 1.09 MG/DL (0.40-0.90); GLUCOSE 82 MG/DL (70-104); MAGNESIUM 1.8 MG/DL (1.5-2.4); POTASSIUM 3.5 MMOL/L (3.5-5.1); SODIUM 142 MMOL/L (135-145); TOTAL CARBON DIOXIDE 33.7 MMOL/L (24-32); TOTAL PROTEIN 5.2 G/DL (6.4-8.2); eGFR 49 ML/MIN
--- NOTE | 2019-08-29 06:23 | NUR ---
Problems reprioritized. Patient report given, questions answered & plan of care reviewed with Francy ZUÑIGA.
--- NOTE | 2019-08-29 06:50 | NUR ---
Patient in room [facility]EL[facility] 356. I have received report from Linda ZUÑIGA and had the opportunity to ask questions and assume patient care.
[2019-08-29 07:54] VITALS: BP 125/72
[2019-08-29] MEDS: K and/or MAG REPLACEMENT MC SCH ×2 (08:00→20:00)
[2019-08-29] MEDS: cefepime 1GM in D5W 50mL 50 ML IV SCH ×2 (08:57→16:12)
[2019-08-29] MEDS: furosemide 20 MG/2 ML vial IV SCH ×2 (08:57→20:00)
[2019-08-29] MEDS: famotidine 20mg tablet PO SCH ×2 (08:57→20:49)
[2019-08-29] MEDS: lisinopril 2.5mg tablet PO SCH (08:58)
[2019-08-29] MEDS: apixaban 5mg tablet PO SCH ×2 (08:58→20:49)
[2019-08-29] MEDS: lactobacillus rhamnosus 10,000 MMU CELLS/CAPSULE PO SCH ×2 (08:58→20:50)
[2019-08-29] MEDS: carVEDilol 12.5mg tablet PO SCH ×2 (08:58→20:00)
[2019-08-29 12:11] VITALS: BP 87/47
[2019-08-29 12:30] VITALS: BP 97/49
[2019-08-29 18:00] VITALS: BP 68/41
--- NOTE | 2019-08-29 18:00 | NUR ---
Pt had refused getting up out of bed to chair in a.m. and early p.m. due to "too tired". Able to get pt up OOB to chair approx 1530 with 2 person max assist. Pt tolerated well. Teachings/Interventions reviewed with pt's daughter when at bedside throughout shift, verbalizing understanding.
--- NOTE | 2019-08-29 18:43 | NUR ---
Problems reprioritized. Patient report given, questions answered & plan of care reviewed with Esteban ZUÑIGA.
[2019-08-29] MEDS: donepezil 5mg tablet PO SCH (20:48)
[2019-08-29] MEDS: mirtazapine 15mg tablet PO SCH (20:49)
[2019-08-30] VITALS: BP 114/63
[2019-08-30] MEDS: cefepime 1GM in D5W 50mL 50 ML IV SCH ×2 (00:01→09:25)
--- NOTE | 2019-08-30 06:46 | NUR ---
Problems reprioritized. Patient report given, questions answered & plan of care reviewed with Francy ZUÑIGA.
--- NOTE | 2019-08-30 07:00 | NUR ---
Patient in room [facility]EL[facility] 356. I have received report from Grisel ZUÑIGA and had the opportunity to ask questions and assume patient care.
[2019-08-30 08:00] VITALS: BP 114/81
[2019-08-30] MEDS: carVEDilol 12.5mg tablet PO SCH (08:00)
[2019-08-30] MEDS: furosemide 20 MG/2 ML vial IV SCH (08:00)
[2019-08-30] MEDS: K and/or MAG REPLACEMENT MC SCH (08:00)
[2019-08-30] MEDS: lisinopril 2.5mg tablet PO SCH (08:00)
--- NOTE | 2019-08-30 09:30 | NUR ---
notified Dr Stewart that pt's 0800 doses of Lasix , Carvedilol, and Lisinopril were held due to trend of lower blood pressures - ok to hold these am doses per
[2019-08-30] MEDS: famotidine 20mg tablet PO SCH (09:39)
[2019-08-30] MEDS: lactobacillus rhamnosus 10,000 MMU CELLS/CAPSULE PO SCH (09:39)
[2019-08-30] MEDS: apixaban 5mg tablet PO SCH (09:39)
[2019-08-30 09:44] LABS: BASOPHILS # (AUTO) 0.1 X10'3 (0-0.2); BASOPHILS % (AUTO) 0.8 % (0-1); EOSINOPHILS # (AUTO) 0.1 X10'3 (0-0.9); HEMATOCRIT 36.9 % (35.0-45.0); HEMOGLOBIN 12.3 g/dl (12.0-16.0); LYMPHOCYTES # (AUTO) 0.9 X10'3 (1.1-4.8); LYMPHOCYTES % (AUTO) 13.5 % (21-51); MEAN CORPUSCULAR HEMOGLOBIN 34.7 PG (27.0-31.0); MEAN CORPUSCULAR HGB CONC 33.4 g/dL (33.0-36.5); MEAN CORPUSCULAR VOLUME 103.9 FL (78-98); MEAN PLATELET VOLUME 9.2 FL (7.4-10.4); MONOCYTES # (AUTO) 0.9 X10'3 (0-0.9); MONOCYTES % (AUTO) 12.4 % (2-12); NEUTROPHILS # (AUTO) 5.1 X10'3 (1.8-7.7); NEUTROPHILS % (AUTO) 72.3 % (42-75); PLATELET COUNT 189 X10'3 (140-440); RED BLOOD COUNT 3.55 X10'6 (4.20-5.60); RED CELL DISTRIBUTION WIDTH 13.8 % (11.5-14.5)
[2019-08-30 09:51] LABS: ALANINE AMINOTRANSFERASE 13 U/L (12-78); ALBUMIN 2.2 G/DL (3.4-5.0); ALBUMIN/GLOBULIN RATIO 0.7 (1.1-1.5); ALKALINE PHOSPHATASE 38 IU/L (46-116); ANION GAP 3 (8-16); ASPARTATE AMINO TRANSFERASE 19 U/L (10-37); BILIRUBIN,TOTAL 0.8 MG/DL (0.1-1.0); BLOOD UREA NITROGEN 23 MG/DL (7-18); BUN/CREATININE RATIO 19.5 (6.6-38.0); CALCIUM 8.3 MG/DL (8.5-10.1); CHLORIDE 105 MMOL/L (99-107); CREATININE 1.18 MG/DL (0.40-0.90); GLUCOSE 109 MG/DL (70-104); MAGNESIUM 1.7 MG/DL (1.5-2.4); POTASSIUM 3.1 MMOL/L (3.5-5.1); SODIUM 141 MMOL/L (135-145); TOTAL CARBON DIOXIDE 33.1 MMOL/L (24-32); TOTAL PROTEIN 5.5 G/DL (6.4-8.2); eGFR 44 ML/MIN
[2019-08-30 12:00] VITALS: BP 99/57
--- NOTE | 2019-08-30 13:45 | NUR ---
Report phoned to Bertha GONSALES at [facility]. Pt stable and appropriate for d/c to facility. Tele d/c'd, Ext IV d/c'd cannula intact. Pt's daughter at bedside. All belongings sent with patient. Pt down to lobby with [employer] personnel via [facility] at 1340.
== END 2019-08-30 13:40 | DRG 291 ==
LOC: ER 22:59 → ED HOLD 08-26 01:29 → UNDOADMIN 08-26 01:45 → ED HOLD 08-26 01:45 → EDBEDREQ 08-26 01:51 → SUR 3N 08-26 02:10 → ED HOLD 08-26 02:10
PROVIDERS: ADMIT Internal Medicine; ATTEND Family Medicine
DX: I50.33 Acute on chronic diastolic (congestive) heart failure (principal); J18.9 Pneumonia, unspecified organism; N39.0 Urinary tract infection, site not specified; I48.19 Other persistent atrial fibrillation; J90 Pleural effusion, not elsewhere classified; F10.20 Alcohol dependence, uncomplicated; I51.7 Cardiomegaly; Z79.01 Long term (current) use of anticoagulants; C50.919 Malignant neoplasm of unspecified site of unspecified female breast; I48.91 Unspecified atrial fibrillation; F03.90 Unspecified dementia, unspecified severity, without behavioral disturbance, psychotic disturbance, mood disturbance, and anxiety; Z88.0 Allergy status to penicillin
CPT/HCPCS: 36415; 71045; 71250; 76937; 80053; 80320; 81001; 83605; 83735; 83880; 84145; 84484; 85025; 85610; 87040; 87081; 87088; 92508; 92616; 93005; 93306; 97112; 97116; 97161; 97530; 99285; G0378; J0692; J1940; J3411; J3475; J3490; J7030

== ENCOUNTER 2020-03-29 13:11 | Outpatient (CLI) | payer MEDICARE ==
[~2020-03-29 13:11] MED LIST changes: -BUPR150T6 PO; +CETI-90 PO; +CHOL200074 PO; +LORA10CA PO; -METO-395 PO; +METO-539 PO; +MIRT-116 PO; +MULT-933 PO
[2020-03-29 15:26] LABS: BASOPHILS # (AUTO) 0.1 X10'3 (0-0.2); BASOPHILS % (AUTO) 0.7 % (0-1); EOSINOPHILS % (AUTO) 0.2 % (0-6); HEMATOCRIT 27.9 % (35.0-45.0); HEMOGLOBIN 9.3 g/dl (12.0-16.0); LYMPHOCYTES # (AUTO) 0.6 X10'3 (1.1-4.8); MEAN CORPUSCULAR HEMOGLOBIN 33.1 PG (27.0-31.0); MEAN CORPUSCULAR HGB CONC 33.4 g/dL (33.0-36.5); MEAN CORPUSCULAR VOLUME 99.3 FL (78-98); MEAN PLATELET VOLUME 8.6 FL (7.4-10.4); MONOCYTES # (AUTO) 0.6 X10'3 (0-0.9); MONOCYTES % (AUTO) 6.7 % (2-12); NEUTROPHILS # (AUTO) 7.9 X10'3 (1.8-7.7); NEUTROPHILS % (AUTO) 85.4 % (42-75); PLATELET COUNT 220 X10'3 (140-440); RED BLOOD COUNT 2.81 X10'6 (4.20-5.60); RED CELL DISTRIBUTION WIDTH 15.3 % (11.5-14.5); WHITE BLOOD COUNT 9.2 X10'3 (4.5-11.0)
[2020-03-29 15:43] LABS: ALANINE AMINOTRANSFERASE 20 U/L (12-78); ALBUMIN 2.9 G/DL (3.4-5.0); ALBUMIN/GLOBULIN RATIO 0.9 (1.1-1.5); ALKALINE PHOSPHATASE 85 IU/L (46-116); ANION GAP 7 (8-16); ASPARTATE AMINO TRANSFERASE 20 U/L (10-37); BILIRUBIN,TOTAL 0.3 MG/DL (0.1-1.0); BLOOD UREA NITROGEN 26 MG/DL (7-18); BUN/CREATININE RATIO 17.9 (6.6-38.0); C-REACTIVE PROTEIN 5.15 MG/DL (0.0-0.5); CALCIUM 8.6 MG/DL (8.5-10.1); CHLORIDE 100 MMOL/L (99-107); CREATININE 1.45 MG/DL (0.40-0.90); GLUCOSE 90 MG/DL (70-104); POTASSIUM 4.5 MMOL/L (3.5-5.1); SODIUM 134 MMOL/L (135-145); TOTAL CARBON DIOXIDE 27.4 MMOL/L (24-32); TOTAL PROTEIN 6.2 G/DL (6.4-8.2); eGFR 35 ML/MIN
[2020-03-29 15:50] LABS: HEMOGLOBIN A1C 5.4 % (4.5-6.2)
[2020-04-03] MEDS ORDERED: POTA8TAB57 PO (18:31)
[2020-04-03] MEDS ORDERED: DONE10TA44 PO (18:31)
[2020-04-03] MEDS ORDERED: MIRT30TA8 PO (18:31)
[2020-04-03] MEDS ORDERED: ATRNS NS (18:31)
[2020-04-03] MEDS ORDERED: OMEP-50 PO (18:31)
[2020-04-03] MEDS ORDERED: SILV25CR21 TP (18:31)
[2020-04-03] MEDS ORDERED: FURO20TA4 PO (18:31)
[2020-04-03] MEDS ORDERED: APIX5TAB3 PO (18:31)
[2020-04-03] MEDS ORDERED: DOXY-224 PO (19:06)
[2020-04-03] MEDS ORDERED: ONDA-103 PO (19:06)
[2020-04-03] MEDS ORDERED: METO-395 PO (19:06)
== END 2020-03-29 23:59 | disposition home or self-care (01) ==
LOC: WOUND CARE 13:11
PROVIDERS: ATTEND Nurse Practitioner
DX: S91.102A Unspecified open wound of left great toe without damage to nail, initial encounter (principal); S91.105A Unspecified open wound of left lesser toe(s) without damage to nail, initial encounter; I70.262 Atherosclerosis of native arteries of extremities with gangrene, left leg; L97.522 Non-pressure chronic ulcer of other part of left foot with fat layer exposed; I11.0 Hypertensive heart disease with heart failure; I50.32 Chronic diastolic (congestive) heart failure; L03.116 Cellulitis of left lower limb; K21.9 Gastro-esophageal reflux disease without esophagitis; L03.032 Cellulitis of left toe; E43 Unspecified severe protein-calorie malnutrition; F03.91 Unspecified dementia, unspecified severity, with behavioral disturbance; Z79.899 Other long term (current) drug therapy; Z68.1 Body mass index [BMI] 19.9 or less, adult; Z85.3 Personal history of malignant neoplasm of breast; W06.XXXA Fall from bed, initial encounter; Y93.89 Activity, other specified; Y92.89 Other specified places as the place of occurrence of the external cause; Y99.8 Other external cause status
CPT/HCPCS: 36415; 73630; 80053; 83036; 85025; 85651; 86140; G0463

== ENCOUNTER 2020-04-15 16:30 | Emergency (ER) | payer MEDICARE ==
[~2020-04-15] VITALS: Ht 170.2 cm; Wt 47.3 kg
[~2020-04-15 16:30] MED LIST changes: -CETI-90 PO; -CHOL200074 PO; +DONE10TA44 PO; -DONE10TA7 PO; +DOXY-224 PO; -FAMO-128 PO; +FURO20TA4 PO; -LORA10CA PO; +METO-395 PO; -METO-539 PO; -MIRT-116 PO; +MIRT30TA8 PO; -MULT-933 PO; +OMEP-50 PO; +ONDA-103 PO; +POTA8TAB57 PO; +SILV25CR21 TP; -TAMO20TA4 PO; -TOLT2TAB2 PO
[2020-04-15 18:50] LABS: BASOPHILS # (AUTO) 0.1 X10'3 (0-0.2); EOSINOPHILS % (AUTO) 0.1 % (0-6); HEMATOCRIT 37.3 % (35.0-45.0); HEMOGLOBIN 12.4 g/dl (12.0-16.0); LYMPHOCYTES # (AUTO) 0.9 X10'3 (1.1-4.8); LYMPHOCYTES % (AUTO) 11.7 % (21-51); MEAN CORPUSCULAR HEMOGLOBIN 33.2 PG (27.0-31.0); MEAN CORPUSCULAR HGB CONC 33.2 g/dL (33.0-36.5); MEAN CORPUSCULAR VOLUME 99.9 FL (78-98); MEAN PLATELET VOLUME 8.7 FL (7.4-10.4); MONOCYTES # (AUTO) 0.5 X10'3 (0-0.9); MONOCYTES % (AUTO) 5.8 % (2-12); NEUTROPHILS # (AUTO) 6.5 X10'3 (1.8-7.7); NEUTROPHILS % (AUTO) 81.4 % (42-75); PLATELET COUNT 305 X10'3 (140-440); RED BLOOD COUNT 3.73 X10'6 (4.20-5.60)
[2020-04-15 19:07] LABS: ALANINE AMINOTRANSFERASE 17 U/L (12-78); ALBUMIN 2.8 G/DL (3.4-5.0); ALBUMIN/GLOBULIN RATIO 0.8 (1.1-1.5); ALKALINE PHOSPHATASE 122 IU/L (46-116); ANION GAP 7 (8-16); ASPARTATE AMINO TRANSFERASE 24 U/L (10-37); BILIRUBIN,TOTAL 0.7 MG/DL (0.1-1.0); BLOOD UREA NITROGEN 32 MG/DL (7-18); BUN/CREATININE RATIO 25.4 (6.6-38.0); CALCIUM 8.9 MG/DL (8.5-10.1); CHLORIDE 103 MMOL/L (99-107); CREATININE 1.26 MG/DL (0.40-0.90); GLUCOSE 123 MG/DL (70-104); POTASSIUM 4.4 MMOL/L (3.5-5.1); SODIUM 136 MMOL/L (135-145); TOTAL CARBON DIOXIDE 25.7 MMOL/L (24-32); TOTAL PROTEIN 6.4 G/DL (6.4-8.2); eGFR 41 ML/MIN
[2020-04-15 19:21] LABS: C-REACTIVE PROTEIN 1.57 MG/DL (0.0-0.5)
[2020-04-15] MEDS ORDERED: normal saline 1000ML IV soln IVB ONE (19:40)
[2020-04-15] MEDS ORDERED: CefTRIAXone/D5W-Rocephin 1gm 50 ML IV ONE (20:25)
[2020-04-15] MEDS ORDERED: magnesium 4gm in 100ml NS 100 ML IV PRN (20:35)
[2020-04-15] MEDS ORDERED: magnesium hydroxide 30ml (MOM) UD suspension PO PRN (20:35)
[2020-04-15] MEDS ORDERED: ondansetron/PF 4mg/2ml inj IV PRN (20:35)
[2020-04-15] MEDS ORDERED: potassium Cl 20 mEq SR tablet PO PRN ×2 (20:35)
[2020-04-15] MEDS ORDERED: magnesium Cl slow-release 64mg tablet PO PRN (20:35)
[2020-04-15] MEDS ORDERED: potassium CL 10mEq/100ml bag 100 ML IV PRN ×2 (20:35)
[2020-04-15] MEDS ORDERED: normal saline 1000ml 1,000 ML IV SCH (20:35)
[2020-04-15] MEDS ORDERED: morphine 2 MG/ML inj. syringe IV PRN (20:35)
[2020-04-15] MEDS ORDERED: magnesium 2GM in 50ml NS 50 ML IV PRN (20:35)
[2020-04-15] MEDS ORDERED: vancomycin/NS 1 GM ADD-VANTAGE 250 ML IV ONE (20:35)
[2020-04-15] MEDS ORDERED: HYDROcodone/acetaminophen 5mg/325mg tablet PO PRN (20:35)
[2020-04-15] MEDS ORDERED: acetaminophen 325mg tablet PO PRN (20:35)
--- NOTE | 2020-04-15 21:11 | NUR ---
md tan and agnieszka bae at bedside. discussion with patient, and looking like a likely discharge. will f/u.
--- NOTE | 2020-04-15 21:36 | NUR ---
nora made aware pt to be discharged, verbal order to cancel admission orders received.
[2020-04-15 22:00] VITALS: BP 136/74
[2020-04-15 23:17] LABS: ANISOCYTOSIS 3+; LARGE PLATELETS FEW; PLATELET ESTIMATE NORMAL
[2020-04-16] MEDS ORDERED: K and/or MAG REPLACEMENT MC SCH (08:00)
[2020-04-16] MEDS ORDERED: docusate sod 100mg capsule PO SCH (08:00)
== END 2020-04-15 22:03 | disposition home or self-care (01) ==
LOC: ER 16:30 → ED HOLD 20:31 → UNDOADMIN 20:31 → UNDODISIN 22:00
DX: I96 Gangrene, not elsewhere classified (principal); I48.91 Unspecified atrial fibrillation; Z85.3 Personal history of malignant neoplasm of breast; Z88.0 Allergy status to penicillin; Z79.899 Other long term (current) drug therapy
CPT/HCPCS: 36415; 73660; 80053; 83880; 85008; 85025; 85610; 85651; 86140; 96365; 99285; J0696; J7030; G0378